=== PATIENT | female | born 1950 | race African-American/Black ===

== ENCOUNTER 2019-10-14 18:52 | Emergency (ER) | payer BC, MEDICARE ==
[~2019-10-14] VITALS: Ht 165.1 cm; Wt 100.5 kg
[2019-10-14] MEDS ORDERED: CLOP75TA4 PO (19:06)
[2019-10-14] MEDS ORDERED: MORPHINE SULFATE 4 MG/ML CPJ (NOT FOR IM USE) IV STA (19:14)
[2019-10-14] MEDS ORDERED: ONDANSETRON HCL 4MG/2ML INJ IV STA (19:14)
[2019-10-14 19:32] LABS: BASOPHILS % 0.6 % (0.0-2.0); HEMATOCRIT. 39.6 % (36.0-48.0); HEMOGLOBIN. 13.6 g/dL (12.0-16.0); LYMPHOCYTES % 30.7 % (20.0-50.0); MEAN CORPUSCULAR HEMOGLOBIN 32.5 pg (28.0-32.0); MEAN CORPUSCULAR VOLUME 94.8 fL (81.0-99.0); MEAN PLATELET VOLUME 7.1 fl (7.4-10.4); NEUTROPHILS % 60.7 % (40.0-76.0); PLATELET 216 x1000/uL (130-400); RED BLOOD CELL COUNT 4.17 mill/uL (4.2-5.4); RED CELL DISTRIBUTION WIDTH 13.5 % (11.6-14.6)
[2019-10-14 19:35] LABS: CHLORIDE 110 mEq/L (98-107)
[2019-10-14 19:39] LABS: INR 1.1; PARTIAL THROMBOPLASTIN TIME 21.2 sec (23.4-31.0); PROTHROMBIN TIME 11.4 sec (9.6-11.0)
[2019-10-14] MEDS ORDERED: NITROGLYCERIN 0.4MG TABLET SL SL ONE (20:15)
[2019-10-14] MEDS ORDERED: KCL 20MEQ/100ML PREMIX 100 ML IV ONE (21:45)
[2019-10-14] MEDS ORDERED: SODIUM CHLORIDE 0.9% IV ONE (21:45)
[2019-10-14] MEDS ORDERED: IOHEXOL-300 100 ML BOTTLE ONE (23:17)
[2019-10-15 00:33] VITALS: BP 140/91
[2019-10-15] MEDS ORDERED: ACETAMINOPHEN 325MG TABLET PO PRN (08:45)
[2019-10-15] MEDS ORDERED: PANTOPRAZOLE 40MG DR TABLET PO SCH (08:45)
[2019-10-15] MEDS ORDERED: ONDANSETRON HCL 4MG/2ML INJ IV PRN (08:45)
[2019-10-15] MEDS ORDERED: ENOXAPARIN 30MG/0.3ML SYR SUBCUT SCH (09:00)
[2019-10-15] MEDS ORDERED: DOCUSATE SODIUM 100MG CAPSULE PO PRN (09:00)
[2019-10-15] MEDS ORDERED: CLOPIDOGREL 75MG TABLET PO SCH (09:00)
[2019-10-15] MEDS ORDERED: SODIUM CHLORIDE 0.9% INJ 3ML FLUSH IVF SCH (14:00)
== END 2019-10-15 00:42 | disposition left against medical advice (07) ==
LOC: ER 18:52 → EDBEDREQ 23:17 → ER 10-15 00:42 → CANBEDREQ 10-15 01:56
DX: R07.89 Other chest pain (principal); R10.13 Epigastric pain; I10 Essential (primary) hypertension; Z95.818 Presence of other cardiac implants and grafts; Z86.73 Personal history of transient ischemic attack (TIA), and cerebral infarction without residual deficits
CPT/HCPCS: 36415; 70450; 71045; 71275; 80053; 83605; 83690; 83880; 84484; 85025; 85610; 85730; 86850; 86900; 86901; 93005; 99291; J2270; J2405; J3480; J7030; Q9967